=== PATIENT | female | born 1995 | race Caucasian/White ===

== ENCOUNTER 2022-07-12 13:01 | Emergency (ER) | payer SELFPAY ==
[~2022-07-12] VITALS: Ht 152.4 cm; Wt 68.2 kg
[2022-07-12 13:24] VITALS: TEMP 98.2
[2022-07-12] MEDS ORDERED: NORCO 325 MG-51 TAB PO (15:33)
[2022-07-12] MEDS ORDERED: MOTRIN 800800 MG/TAB PO (15:33)
[2022-07-12] MEDS ORDERED: CRUTCHES MC (15:35)
[2022-07-12 15:47] VITALS: BP 119/66; PULSE 56
== END 2022-07-12 15:47 | disposition home or self-care (01) ==
LOC: COL.ER 13:01
DX: S93.601A Unspecified sprain of right foot, initial encounter (principal); F17.210 Nicotine dependence, cigarettes, uncomplicated; Z28.310 Unvaccinated for COVID-19; W01.0XXA Fall on same level from slipping, tripping and stumbling without subsequent striking against object, initial encounter